=== PATIENT | male | born 1980 | race Caucasian/White ===

== ENCOUNTER 2016-09-11 19:09 | Emergency (ER) | payer OTHER ==
[~2016-09-11] VITALS: Ht 170.2 cm; Wt 72.6 kg
[2016-09-11 19:49] VITALS: BP 122/78
--- NOTE | 2016-09-11 20:47 | NUR ---
PATIENT TO ER BED 4.
--- NOTE | 2016-09-11 20:57 | NUR ---
Patient being evaluated by physician at bedside.
[2016-09-11] MEDS ORDERED: ALUMINUM HYD/MAG/SIMETHICONE 30 ML UDC PO ONE (21:05)
[2016-09-11] MEDS ORDERED: LIDOCAINE VISCOUS 2% 20 ML UDC PO ONE (21:05)
[2016-09-11] MEDS ORDERED: DICYCLOMINE HCL LIQUID 10 MG/5 ML UDC PO ONE (21:05)
--- NOTE | 2016-09-11 21:05 | NUR ---
36Y M PRESENTED TO ER C/O OF ABD PAIN X3 DAYS WITH NAUSEA. DENIES VOMITTING /DIARRHEA. V/S WNL. PAIN 8/10 IN SCALE.
[2016-09-11] MEDS ORDERED: fentaNYL 0.05 MG/ML VIAL IVP ONE (21:40)
[2016-09-11] MEDS ORDERED: NACL 0.9% 1,000 ML IV ONE (21:40)
[2016-09-11 22:09] LABS: BASOPHILS # (AUTO) 0.2 K/uL (0.00-0.22); BASOPHILS % (AUTO) 2.2 % (0.0-2.0); EOSINOPHILS # (AUTO) 0.2 K/uL (0-0.4); EOSINOPHILS % (AUTO) 1.7 % (0.0-4.0); HEMATOCRIT 44.8 % (36-52); HEMOGLOBIN 14.8 g/dL (12.0-18.0); LYMPHOCYTES # (AUTO) 3.5 K/uL (2.0-11.5); LYMPHOCYTES % (AUTO) 33.3 % (20.5-51.1); MEAN CORPUSCULAR HEMOGLOBIN 30 pg (27-31); MEAN CORPUSCULAR HGB CONC 33 g/dL (33-37); MEAN CORPUSCULAR VOLUME 90 fL (80-94); MONOCYTES # (AUTO) 0.8 K/uL (0.8-1.0); MONOCYTES % (AUTO) 7.7 % (1.7-9.3); NEUTROPHILS # (AUTO) 5.7 K/uL (1.8-7.7); NEUTROPHILS % (AUTO) 55.1 % (42.2-75.2); PLATELET COUNT (AUTO) 233 K/uL (140-450); RED BLOOD CELL COUNT(AUTO) 4.98 MIL/uL (4.20-6.10); RED CELL DISTRIBUTION WIDTH 12.5 % (11.6-13.7); WHITE BLOOD COUNT (AUTO) 10.4 K/uL (4.8-10.8)
[2016-09-11 22:21] LABS: ANION GAP 9.7 (8-16); CALCIUM 9.4 mg/dL (8.5-10.1); CARBON DIOXIDE 31.3 mmol/L (21-32); CREATININE 1.3 mg/dL (0.6-1.3)
[2016-09-11 22:27] LABS: TOTAL BILIRUBIN 0.3 mg/dL (0.0-1.0); TOTAL PROTEIN, SERUM 7.8 g/dL (6.4-8.2)
[2016-09-11 23:32] VITALS: BP 122/78
--- NOTE | 2016-09-11 23:32 | NUR ---
Patient discharged with v/s stable. Written and verbal after care instructions given and explained. Patient alert, oriented and verbalized understanding of instructions. Ambulatory with steady gait. All questions addressed prior to discharge. ID band removed. Patient advised to follow up with PMD. Rx of TYLENOL WITH CODEINE #3 given. Patient educated on indication of medication including possible reaction and side effects. Opportunity to ask questions provided and answered.
== END 2016-09-11 23:32 | disposition home or self-care (01) ==
LOC: MED 19:09
DX: R10.13 Epigastric pain (principal); R10.12 Left upper quadrant pain
CPT/HCPCS: 36415; 74022; 80053; 83690; 85025; 96361; 96374; 99285; J3010; J7030